=== PATIENT | male | born 1990 | race Caucasian/White ===

== ENCOUNTER 2017-11-16 07:58 | Emergency (ER) | payer OTHER ==
[2017-11-16] MEDS: KETOROLAC 60 MG INJ IM (08:30)
[2017-11-16] MEDS: HYDROCODONE/APAP (10/325) TAB PO (08:30)
== END 2017-11-16 08:52 | disposition home or self-care (01) ==
LOC: FTE 07:58
DX: M25.511 Pain in right shoulder (principal)
CPT/HCPCS: 96372; 99284-25; J1885